=== PATIENT | male | born 1965 | race Caucasian/White ===

== ENCOUNTER 2021-03-21 08:38 | Emergency (ER) | payer SELFPAY ==
[2021-03-21 08:39] VITALS: BP 158/89; PULSE 71; RESP 18; TEMP 36.8; O2SAT 97; BMI 40.7
--- NOTE | 2021-03-21 08:50 | HMH.EDGENADL ---
ED Disposition Clinical Impression: Strain of thoracic spine Facial contusion Qualifiers: Encounter type: initial encounter Qualified Code(s): S00.83XA - Contusion of other part of head, initial encounter Disposition: Home, Self-Care Condition on Discharge: Good Instructions: DI for Back Strain or Sprain Additional Instructions: Tylenol or ibuprofen for pain. Ice to nose 20 minutes 4-5 times per day to reduce swelling and bleeding. [id number]-[id number] like Afrin nasal spray twice a day for 3 days if needed for nasal congestion or bleeding. Follow-up with primary care provider if not improving in 4 to 5 days. Additional instructions for HEAD INJURY: Return immediately if severe headache, vomiting, problems with vision or speech, numbness or weakness of the extremities, or severe neck pain. Referrals: Cindy Bundy APRN [Primary Care Provider] - - Critical Care Critical Care Time: No Attestation: On , the high probability of a clinically significant, sudden or life threatening deterioration of the following system(s) required my full and direct attention, intervention and personal management. The time I documented below is in addition to time spent performing reported procedures but includes the following listed in this critical care notation. Medical Decision Making - Oziel Inquiry Pt receiving controlled substance: No Vital Signs: 03/21/21 08:39 Temperature 98.2 F Temperature Source Oral Pulse Rate [Left Radial] 71 Respiratory Rate 18 Blood Pressure [Right Arm] 158/89 H Blood Pressure Mean [Right Arm] 112 Blood Pressure Source [Right Arm] Automatic Cuff Blood Pressure Position [Right Arm] Sitting 02 Sat by Pulse Oximetry 97 Oxygen Delivery Method Room Air Orders (Tests/Meds): ORDERS Category Date Time Status Cervical spine XR 3 views [XR cervical spine 3V] Stat Exams 03/21/21 08:55 Taken XR thoracic spine 2V Stat Exams 03/21/21 08:52 Taken - Radiology Data #1 Image(s): C-Spine, T-Spine Image Reviewed: Yes I reviewed the patient's radiology image Pain: Degenerative changes with spurs. No abnormal soft tissue swelling, fractures or dislocation seen. Medical Decision Narrative: Declines nasal x-rays General Adult HPI - General Chief complaint: PAIN Stated complaint: ao 03/21/21 fell, back pain Time Seen by Provider: 03/21/21 08:50 Mode of Arrival: Ambulatory Limitations: No Limitations Description of Symptoms (Recalled from ER Triage Doc. by RN): pt states he stumbled into a pole and has upper back pain between his shoulders and a nose bleed. Pt states he just wants an x-ray of his back. - History of Present Illness HPI narrative: He stumbled and fell directly into a pole, striking his forehead and nose. No loss of consciousness. He has some epistaxis, but denies headache, facial or nose pain. No pain in the jaw or teeth. Denies neck pain. He says his only pain is in his upper back between his shoulder blades slightly to the right of midline. No pain at rest, only has pain with movement. He expressed to the nurse that he just wanted an x-ray of his back. However, although his neck does not hurt, he also tells me that he would like his neck x-rayed while I am here . No numbness or weakness of extremities, no injury to extremities. - Related Data Home Medications Medication Instructions Recorded Confirmed No Known Home Medications 03/21/21 03/21/21 Allergies Allergy/AdvReac Type Severity Reaction Status Date / Time No Known Allergies Allergy Verified 03/21/21 08:49 [facility] History - Hepatitis A Screen Drug use history?: No High risk sexual behaviors?: No History of sexually transmitted infection?: No Currently employed?: No Childcare worker?: No Do you have indoor plumbing?: Yes Do you have electricity?: Yes Attestation statement:: This patient has been screened for Hepatitis A risk factors. I have reviewed the patient's past medical history
--- NOTE | 2021-03-21 08:52 | XR_ITS ---
PROCEDURE INFORMATION: Exam: XR Thoracic Spine Exam date and time: 03/21/2021 8:52 AM Age: 55 years old Clinical indication: Pain in thoracic spine TECHNIQUE: Imaging protocol: XR of the thoracic spine. Views: 2 views. COMPARISON: No relevant prior studies available. FINDINGS: Bones/joints: There is no evidence of acute fracture.There is no evidence of malalignment or dislocation. Anterior and lateral osteophyte formation in the thoracic spine. Mild chronic compression fractures of unknown age in the upper thoracic spine Soft tissues: Unremarkable. IMPRESSION: There is no evidence of acute fracture.There is no evidence of malalignment or dislocation.
--- NOTE | 2021-03-21 08:55 | XR_ITS ---
PROCEDURE INFORMATION: Exam: XR Cervical Spine Exam date and time: 03/21/2021 8:55 AM Age: 55 years old Clinical indication: Neck pain; Additional info: Injury TECHNIQUE: Imaging protocol: XR of the cervical spine. Views: 2 or 3 views. COMPARISON: No relevant prior studies available. FINDINGS: Bones/joints: There is no evidence of acute fracture.There is no evidence of malalignment or dislocation. There is fusion of the posterior elements C2 and C3 Anterior osteophyte formation C5 through C7 Intervertebral disc space narrowing C6/C7 consistent with degenerative disc disease.. Soft tissues: Unremarkable. IMPRESSION: 1. There is no evidence of acute fracture.There is no evidence of malalignment or dislocation. 2. Intervertebral disc space narrowing C6/C7 consistent with degenerative disc disease.. .
[2021-03-21 09:27] VITALS: BP 149/89; PULSE 68; RESP 19; TEMP 36.8; O2SAT 99
== END 2021-03-21 09:27 | disposition home or self-care (01) ==
PROVIDERS: Emergency Provider Emergency Medicine; PCP Nurse Practitioner Family
DX: S29.012A Strain of muscle and tendon of back wall of thorax, initial encounter (principal); S00.83XA Contusion of other part of head, initial encounter; W01.0XXA Fall on same level from slipping, tripping and stumbling without subsequent striking against object, initial encounter
CPT/HCPCS: 72040; 72070; 99282

== ENCOUNTER 2024-08-01 13:02 | Outpatient (CLI) | payer SELFPAY ==
--- NOTE | 2024-08-01 13:06 | XR_ITS ---
FINAL REPORT CLINICAL HISTORY: left knee pain FINDINGS: Left knee Three views were obtained. There is no acute fracture or dislocation. There are mild degenerative changes. There is anterior soft tissue swelling and anterior soft tissue air, may represent sequela of injury. IMPRESSION: Anterior soft tissue swelling and air, may represent sequela of injury. Reviewed, Interpreted and Dictated by Bal Mann III, MD Transcribed by Dora Mcfadden Authenticated and [facility]
== END 2024-08-01 23:59 | disposition home or self-care (01) ==
LOC: RAD 13:03
PROVIDERS: Visit Provider Family Medicine
DX: M25.562 Pain in left knee (principal); M25.462 Effusion, left knee
CPT/HCPCS: 73562